=== PATIENT | female | born 1960 | race Caucasian/White ===

== ENCOUNTER 2020-09-17 16:03 | Emergency (ER) | payer OTHER ==
[2020-09-17 17:26] LABS: BASOPHIL 0.5 % (0-2); EOSINOPHIL 3.5 % (0-5); HGB 13.8 g/dl (12.5-16.0); LYMPHOCYTE 31.5 % (15-48); MCH 29.3 pg (25.0-31.0); MCHC 33.7 g/dL (32.0-36.0); MONOCYTE 7.5 % (0-12); NEUTROPHIL 56.6 % (41-80); NRBC 0; PLT 303 K/uL (150-400); RBC 4.71 M/uL (4.20-5.40); WBC 8.3 K/uL (4.0-10.5)
[2020-09-17 17:27] LABS: BILIRUBIN NEGATIVE (NEGATIVE); BLOOD NEGATIVE Ery/uL (NEGATIVE); CLARITY CLEAR (CLEAR); COLOR YELLOW (YELLOW); GLUCOSE (U) NORMAL (NORMAL); LEUKOCYTES 1+ Leu/uL (NEGATIVE); NITRITE NEGATIVE (NEGATIVE); PROTEIN NEGATIVE (NEGATIVE); SPECIFIC GRAVITY >=1.030 (1.001-1.030); UROBILINOGEN 0.2 mg/dL (0.2-1.0); pH 5.5 (5.0-9.0)
[2020-09-17 17:44] LABS: BACTERIA 2+; MUCOUS TRACE
[2020-09-17 17:50] LABS: BUN/CREAT RATIO (CALC) 17.3 RATIO; CREATININE 0.81 mg/dL (0.51-0.95); POTASSIUM 3.9 mmol/L (3.5-5.1)
[2020-09-18] MEDS ORDERED: LEVAQUIN250 MG PO (05:35)
[2020-09-18] MEDS ORDERED: PHENERGAN12.5 M1 PO (05:40)
[2020-09-18] MEDS ORDERED: NORCO 5-325 TA1 EACH PO (05:40)
== END 2020-09-18 11:12 | disposition home or self-care (01) ==
LOC: FER 16:03
PROVIDERS: Nurse Practitioner Family
DX: N39.0 Urinary tract infection, site not specified (principal); Z90.49 Acquired absence of other specified parts of digestive tract
CPT/HCPCS: 36415; 80048; 81001; 85025; 93005; C9113; J1885; J1956; J2270; J2405; J7030; Q9967